=== PATIENT | male | born 1940 | race Caucasian/White ===

== ENCOUNTER 2022-01-22 02:25 | Inpatient (IN) | payer MEDICARE ==
[~2022-01-22] VITALS: Ht 165.1 cm; Wt 57.2 kg
--- NOTE | 2022-01-22 02:45 | NUR ---
DR. VILLELA AT BEDSIDE, MSE IN PROGRESS.
[2022-01-22] MEDS ORDERED: ACET325T53 PO (03:28)
[2022-01-22] MEDS ORDERED: ALLO300T2 PO (03:28)
[2022-01-22] MEDS ORDERED: BISA10SU61 RC (03:28)
[2022-01-22] MEDS ORDERED: ALBU2.5V38 IH (03:28)
[2022-01-22] MEDS ORDERED: DOCU100C36 PO (03:28)
[2022-01-22] MEDS ORDERED: QUET25TA PO (03:28)
[2022-01-22] MEDS ORDERED: CARB1TAB21 PO ×2 (03:28)
[2022-01-22] MEDS ORDERED: TRAM50TA2 PO (03:28)
[2022-01-22] MEDS ORDERED: NATE120T6 PO (03:28)
[2022-01-22] MEDS ORDERED: ATOR40TA PO (03:28)
[2022-01-22] MEDS ORDERED: SITA1TBM4 PO (03:28)
[2022-01-22] MEDS ORDERED: BUDE0.5A4 NEB (03:28)
[2022-01-22] MEDS ORDERED: INSU100V11 (03:28)
[2022-01-22] MEDS ORDERED: DONE5TAB34 PO (03:28)
--- NOTE | 2022-01-22 03:30 | NUR ---
GAVE REPORT TO KELSEY MERINO.
--- NOTE | 2022-01-22 04:11 | NUR ---
Pt. admitted to [facility] , under care of Dr. Wray Dx: psychosis, 5150 hold GD Belongs List completed
[2022-01-22] MEDS ORDERED: BLOOD SUGAR DIAGNOSTIC 1 EACH STRIP VI ONE (04:30)
[2022-01-22] MEDS ORDERED: ACETAMINOPHEN 650 MG SUPP.RECT RC PRN (04:30)
[2022-01-22] MEDS ORDERED: ACETAMINOPHEN 325 MG TABLET PO PRN (04:30)
[2022-01-22] MEDS ORDERED: MAG HYDROX/AL HYDROX/SIMETH 30 ML LIQUID UDC PO PRN (04:30)
--- NOTE | 2022-01-22 04:30 | NUR ---
Admitted 81 year old male from [place]. On a 5150 hold for gravely disabled. Upon face to face A&Ox1. Very limited in responses. Ambulates with assistance. Weak and unsteady gate. No aggressiveness noted. Sitting in slick chair by nurses station for observation. Advisement and patient's rights handbook given. PRN Ativan given for restlessness. Will continue to monitor behavior.
[2022-01-22] MEDS: LORAZEPAM 0.5 MG TABLET PO PRN ×2 (05:05→20:51)
[2022-01-22 07:50] VITALS: BP 126/72
[2022-01-22] MEDS ORDERED: QUETIAPINE FUMARATE 25 MG TABLET PO PRN (10:00)
[2022-01-22] MEDS ORDERED: CARBIDOPA/LEVODOPA 25-100MG TABLET PO SCH ×2 (13:00→21:00)
[2022-01-22] MEDS ORDERED: ALLO100T PO (14:23)
[2022-01-22] MEDS ORDERED: ALBU8HFA4 IH (14:34)
[2022-01-22] MEDS ORDERED: SITA1TAB6 PO (14:57)
[2022-01-22 16:56] VITALS: BP 143/66
[2022-01-22] MEDS ORDERED: QUETIAPINE FUMARATE 25 MG TABLET PO SCH (17:00)
[2022-01-22] MEDS: CARBIDOPA/LEVODOPA 25-100MG TABLET PO SCH ×2 (17:01→20:51)
[2022-01-22] MEDS: METFORMIN XR 500 MG TAB.SR.24H PO SCH (17:01)
[2022-01-22] MEDS ORDERED: BUDESONIDE 0.5 MG/2 ML NEBU NEB SCH (19:00)
--- NOTE | 2022-01-22 19:39 | NUR ---
GPS: PT RECEIVED ON CHAIR FOR SAFETY, PT WAS LESTER DOSE OFF DURING THE DAY. ASSISTED WITH FEEDING PT UNABLE TO DO IT BY HIMSELF. WITH EPISODE OF RESISTING WITH MEDICATION. PARANOID ABOUT THE MEDICATION HE'S TAKING AND IN ACT OF PUSHING THE JOB LITHOGRAPHER'S HAND REFUSING TO TAKE THE MEDS. EXPLAINED TO PT THE RISK AND BENEFITS, IN FRONT OF THE BROTHER VISITING THE PT. PER BROTHER, PT HAS BEEN LIKE THAT, LESTER RESISTIVE AND PARANOID ABOUT ANYTHING THAT IS GIVEN TO HIM. NO AGITATION NOTES. COMMUNICATED WITH DNP ABOUT PT LEFT PINK EYE WHICH IS KIND OF RED WITH NO CALL BACK,ENDORSED TO NIGHT NURSE. PT COVID TEST DONE, AFTER LAB PERSONNEL CALLED THAT PT NEEDS ONE. COVID TEST DONE, WILL WAIT FOR RESULT.
[2022-01-22 20:00] VITALS: BP 113/64
[2022-01-22] MEDS: ATORVASTATIN 40 MG TABLET PO SCH (20:51)
--- NOTE | 2022-01-22 21:45 | NUR ---
Received patient in the day room. He is noted A/O x 1. Patient is a poor historian. He noted in impaired insight and judgment as to the reason for his admission to [facility]. He appears depressed. affect is flat, mood is low. Pt required assistance with ADLs. Patient was noted with a redness and discharged on his left eye, Dustin Delarosa ROADSIDE MECHANIC was notified and new order obtained to administer Tobramycin 0.3% Q4 hrs TP on his left eye. Order noted and carried out. It was also noted redness on his buttock. Z guard was ordered and applied. Patient's V/S are stable. He was given PO fluids and snacks. He is reassured for his safety. safety and fall precautions are in place. will continue to monitor.
[2022-01-23] MEDS: TOBRAMYCIN 0.3% OPHT DROP 5 ML BOTTLE LEFTEYE SCH ×6 (04:00→21:07)
--- NOTE | 2022-01-23 05:05 | NUR ---
supervisor broadloom was notified at approx 0100 of the need for new order: Tobramycin 0.3% eye drops for patient's left eye; however, supervisor broadloom has not made available this medication to this magnetic tape typewriter operator. patient is Sleeping in his bed, no distress noted at this time. Will continue to monitor.
--- NOTE | 2022-01-23 07:27 | NUR ---
patient refused blood drawn. will try tomorrow. will continue to monitor.
[2022-01-23 07:50] VITALS: BP 168/58
[2022-01-23] MEDS: CARBIDOPA/LEVODOPA 25-100MG TABLET PO SCH ×6 (08:49→21:09)
[2022-01-23] MEDS ORDERED: ALLOPURINOL 300 MG TABLET PO SCH (09:00)
[2022-01-23] MEDS: REMEDY ESSENTIAL ZINC PASTE 113 GM TOP SCH ×2 (09:01→21:09)
[2022-01-23] MEDS: ALLOPURINOL 100 MG TABLET PO SCH (09:11)
[2022-01-23] MEDS: BUDESONIDE 0.5 MG/2 ML NEBU NEB SCH ×2 (09:33→19:30)
[2022-01-23] MEDS: busPIRone 5 MG TABLET PO SCH ×2 (09:44→17:39)
--- NOTE | 2022-01-23 11:47 | NUR ---
YAZ Initial Discharge Note: Patient currently resides at a [facility] located at [address] [place] [address]; ([phone]). YAZ will be in contact with pt's brother, Lavell ([phone]) to discuss treatment/discharge plan. YAZ will continue to work with MD and the pt. to facilitate a safe and proper discharge plan.
--- NOTE | 2022-01-23 14:48 | NUR ---
Received patient sleeping in his room. A/O X 1 to person. Pt. is withdrawn, quiet, confused, forgetful, cooperative with care, and complaint with medications. Ambulates with assistance. Incontinent of bladder and bowel. Pt. arms have bruises, skin is intact. Pt. is receiving breathing treatment for asthma. Pt. has redness on buttocks, cream barrier applied. Reality orientation provided. Fall and safety precautions implemented.
[2022-01-23 15:32] VITALS: BP 135/74
--- NOTE | 2022-01-23 17:00 | NUR ---
Patient is MRSA nares positive, Beronica was contacted, and ordered Standard Bactroban.
[2022-01-23] MEDS: METFORMIN XR 500 MG TAB.SR.24H PO SCH (17:40)
[2022-01-23] MEDS: MUPIROCIN 2% OINT 22 GM TUBE NS SCH (18:08)
[2022-01-23 19:30] VITALS: BP 156/71
--- NOTE | 2022-01-23 21:00 | NUR ---
received patient in his room in bed. He is noted Awake A/O x 1. Calm and pleasant upon approached, He is a poor historian. Is mood is low, affect is flat. V/S stable. Patient was given PO fluids and snacks. Safety and fall precautions are in place. He is reassured for his safety. Will continue to monitor.
[2022-01-23] MEDS: ATORVASTATIN 40 MG TABLET PO SCH (21:08)
[2022-01-23] MEDS: QUETIAPINE FUMARATE 25 MG TABLET PO SCH (21:24)
[2022-01-23] MEDS: LORAZEPAM 0.5 MG TABLET PO PRN (22:40)
--- NOTE | 2022-01-23 22:44 | NUR ---
Patient noted Restless. All his needs were met. patient requires assistance with ADLs. He is redirectable. Ativan 0.5mg PO PRN was given. Will continue to monitor.
[2022-01-24] MEDS: TOBRAMYCIN 0.3% OPHT DROP 5 ML BOTTLE LEFTEYE SCH ×7 (00:45→23:58)
[2022-01-24] MEDS: CARBIDOPA/LEVODOPA 25-100MG TABLET PO SCH ×5 (06:09→21:41)
[2022-01-24 07:34] VITALS: BP 110/67
[2022-01-24] MEDS: BUDESONIDE 0.5 MG/2 ML NEBU NEB SCH ×2 (08:24→20:23)
[2022-01-24] MEDS: MUPIROCIN 2% OINT 22 GM TUBE NS SCH ×2 (08:48→20:24)
[2022-01-24] MEDS: busPIRone 5 MG TABLET PO SCH ×2 (08:48→17:22)
[2022-01-24] MEDS: ALLOPURINOL 100 MG TABLET PO SCH (08:48)
[2022-01-24] MEDS: REMEDY ESSENTIAL ZINC PASTE 113 GM TOP SCH ×2 (08:49→20:25)
[2022-01-24 16:42] VITALS: BP 149/81
[2022-01-24] MEDS: METFORMIN XR 500 MG TAB.SR.24H PO SCH (17:22)
[2022-01-24 19:41] VITALS: BP 136/76
[2022-01-24] MEDS: ATORVASTATIN 40 MG TABLET PO SCH (20:25)
[2022-01-24] MEDS: QUETIAPINE FUMARATE 25 MG TABLET PO SCH (20:25)
[2022-01-24] MEDS: LORAZEPAM 0.5 MG TABLET PO PRN (21:41)
[2022-01-25] MEDS: TEMAZEPAM 7.5 MG CAPSULE PO PRN (00:47)
[2022-01-25] MEDS ORDERED: CARBIDOPA/LEVODOPA 25-100MG TABLET ONE (04:14)
[2022-01-25] MEDS: TOBRAMYCIN 0.3% OPHT DROP 5 ML BOTTLE LEFTEYE SCH ×5 (04:17→20:20)
[2022-01-25] MEDS: CARBIDOPA/LEVODOPA 25-100MG TABLET PO SCH ×5 (05:20→21:31)
--- NOTE | 2022-01-25 06:22 | NUR ---
GPS: Pt.slept 4.45 last night. Up on slick chair at this time near nurses station for safety and close observation. Denies SOB/pain when asked. Atb eye drops continues to resolve conjunctivitis. Afebrile without any increased agitation noted. Fluids alfredo.well.Bactroban therapy continues for MRSA nares.
[2022-01-25 08:03] VITALS: BP 154/85
[2022-01-25] MEDS: busPIRone 5 MG TABLET PO SCH ×2 (08:20→17:42)
[2022-01-25] MEDS: ALLOPURINOL 100 MG TABLET PO SCH (08:20)
[2022-01-25] MEDS: MUPIROCIN 2% OINT 22 GM TUBE NS SCH ×2 (08:22→20:20)
[2022-01-25] MEDS: REMEDY ESSENTIAL ZINC PASTE 113 GM TOP SCH ×2 (08:23→20:42)
[2022-01-25] MEDS: BUDESONIDE 0.5 MG/2 ML NEBU NEB SCH ×2 (08:52→20:14)
--- NOTE | 2022-01-25 11:33 | NUR ---
GPS: Nursing Notes: Thought Disorder: Patient is awake and responding to his name, disoriented, confused, impaired judgment, needs prompting to be compliant with the unit milieu, showered and shaved, poor insight, unable to formulate a viable plan for self care, redirected and reoriented during shift, minimal participation in therapeutic groups, continue to monitor for safety, continue with treatment plan.
[2022-01-25 16:27] VITALS: BP 143/84
[2022-01-25] MEDS: METFORMIN XR 500 MG TAB.SR.24H PO SCH (17:42)
[2022-01-25 20:02] VITALS: BP 136/79
[2022-01-25] MEDS: ATORVASTATIN 40 MG TABLET PO SCH (20:20)
[2022-01-25] MEDS: QUETIAPINE FUMARATE 25 MG TABLET PO SCH (20:20)
[2022-01-26] MEDS: TOBRAMYCIN 0.3% OPHT DROP 5 ML BOTTLE LEFTEYE SCH ×6 (00:34→19:49)
--- NOTE | 2022-01-26 05:50 | NUR ---
GPS: Patient Remain disoriented, confused and impaired judgment, poor insight, unable to formulate a viable plan for self care, redirected and reoriented during shift,slept 5.45 hrs through the night. continue to monitor for safety.
[2022-01-26] MEDS: CARBIDOPA/LEVODOPA 25-100MG TABLET PO SCH ×5 (07:07→21:28)
[2022-01-26 07:41] VITALS: BP 152/80
[2022-01-26] MEDS: REMEDY ESSENTIAL ZINC PASTE 113 GM TOP SCH ×2 (08:00→20:12)
[2022-01-26] MEDS: LORAZEPAM 0.5 MG TABLET PO PRN (08:00)
[2022-01-26] MEDS: ALLOPURINOL 100 MG TABLET PO SCH (08:00)
[2022-01-26] MEDS: MUPIROCIN 2% OINT 22 GM TUBE NS SCH ×2 (08:00→20:11)
--- NOTE | 2022-01-26 08:00 | NUR ---
Confused, agitated, yelling. Ativan po given with pudding. Calm and compliant after.
[2022-01-26] MEDS: busPIRone 5 MG TABLET PO SCH ×3 (08:07→17:08)
[2022-01-26] MEDS: BUDESONIDE 0.5 MG/2 ML NEBU NEB SCH ×2 (08:58→20:58)
--- NOTE | 2022-01-26 09:39 | NUR ---
Assisted out of bed by PT ambulated with FWW then sitting on gerichair in the hallway
--- NOTE | 2022-01-26 14:00 | NUR ---
Alert, oriented x 2, follows command, calm, sitting on the gerichair. Assisted with meal,eating fairly. Compliant with taking medication, crushed with pudding.
[2022-01-26 16:06] VITALS: BP 117/69
[2022-01-26] MEDS: METFORMIN XR 500 MG TAB.SR.24H PO SCH (17:08)
--- NOTE | 2022-01-26 17:35 | NUR ---
Calm and complaint with taking meal and medication.
[2022-01-26 20:06] VITALS: BP 136/76
[2022-01-26] MEDS: QUETIAPINE FUMARATE 25 MG TABLET PO SCH (20:11)
[2022-01-26] MEDS: ATORVASTATIN 40 MG TABLET PO SCH (20:12)
[2022-01-27] MEDS: TOBRAMYCIN 0.3% OPHT DROP 5 ML BOTTLE LEFTEYE SCH ×7 (03:23→23:08)
[2022-01-27] MEDS: CARBIDOPA/LEVODOPA 25-100MG TABLET PO SCH ×5 (05:11→21:05)
--- NOTE | 2022-01-27 06:17 | NUR ---
GPS: Patient Remain confused and impaired judgment, poor insight, unable to formulate a viable plan for self care, redirected and reoriented during shift,slept 6 hrs through the night. continue to monitor for safety.
[2022-01-27 07:30] VITALS: BP 142/88
[2022-01-27] MEDS: ALLOPURINOL 100 MG TABLET PO SCH (08:44)
[2022-01-27] MEDS: busPIRone 5 MG TABLET PO SCH ×3 (08:44→17:47)
[2022-01-27] MEDS: MUPIROCIN 2% OINT 22 GM TUBE NS SCH ×2 (08:45→20:23)
[2022-01-27] MEDS: REMEDY ESSENTIAL ZINC PASTE 113 GM TOP SCH ×2 (08:46→20:23)
[2022-01-27] MEDS: BUDESONIDE 0.5 MG/2 ML NEBU NEB SCH ×2 (09:38→18:59)
[2022-01-27 15:27] VITALS: BP 163/84
[2022-01-27] MEDS: METFORMIN XR 500 MG TAB.SR.24H PO SCH (17:53)
--- NOTE | 2022-01-27 18:38 | NUR ---
GPS: PT RECEIVED TODAY ON BED, PLACED TO CHAIR FOR SAFETY AND MEALS. PT SEEN EATING BY HIMSELF DURING THE BREAKFAST. COMPLIANT WITH CARE AND MEDS. PT HAD BOWEL MOVEMENT AND ASSISTED TO THE SHOWER TODAY. NO AGITATION NOTED. PT WAS VISITED BY HIS BROTHER. SEEN BY THE PSYCHIATRIST TODAY AND WAS NOT VERY ATTENTIVE AND NOT IN FOCUS. DID NOT EVEN SPEAK WITH PSYCHIATRIST.
[2022-01-27 20:07] VITALS: BP 185/87
[2022-01-27] MEDS: QUETIAPINE FUMARATE 25 MG TABLET PO SCH (20:26)
[2022-01-27] MEDS: ATORVASTATIN 40 MG TABLET PO SCH (20:26)
[2022-01-27 20:30] VITALS: BP 158/72
[2022-01-27] MEDS: TEMAZEPAM 7.5 MG CAPSULE PO PRN (22:03)
[2022-01-28] MEDS: TOBRAMYCIN 0.3% OPHT DROP 5 ML BOTTLE LEFTEYE SCH ×6 (04:22→23:57)
[2022-01-28] MEDS: CARBIDOPA/LEVODOPA 25-100MG TABLET PO SCH ×5 (06:02→21:07)
--- NOTE | 2022-01-28 06:23 | NUR ---
GPS: Pt.slept 6.30 last night. No aggressive behavior noted. Fall precautions observed. Needs attended. Will continue to monitor.
[2022-01-28 07:30] VITALS: BP 166/77
[2022-01-28] MEDS: busPIRone 5 MG TABLET PO SCH ×3 (08:45→17:28)
[2022-01-28] MEDS: ALLOPURINOL 100 MG TABLET PO SCH (08:46)
[2022-01-28] MEDS: MUPIROCIN 2% OINT 22 GM TUBE NS SCH ×2 (08:46→20:16)
[2022-01-28] MEDS: REMEDY ESSENTIAL ZINC PASTE 113 GM TOP SCH ×2 (08:46→20:13)
[2022-01-28] MEDS: BUDESONIDE 0.5 MG/2 ML NEBU NEB SCH ×2 (08:51→19:38)
--- NOTE | 2022-01-28 09:43 | NUR ---
GPS: PT ON CHAIR FOR SAFETY. COOPERATIVE WITH CARE AND COMPLIANT WITH MEDS. PT PARTICIPATED WITH GROUP THERAPY AT OUTSIDE PATIO WITH RECREATIONAL THERAPIST. PT DENIES PAIN OR DISCOMFORT. ABLE TO UNDERSTAND SOMETIMES. NO AGITATION NOTED AT THIS TIME.
--- NOTE | 2022-01-28 11:01 | NUR ---
GPS: PROBABLE CAUSE HEARING DONE TODAY AND PT REFUSED TO PARTICIPATE. HOLD WILL REMAIN FOR GRAVE DISABILITY ONLY. PT MADE AWARE.
[2022-01-28 16:00] VITALS: BP 138/87
[2022-01-28] MEDS: METFORMIN XR 500 MG TAB.SR.24H PO SCH (17:33)
--- NOTE | 2022-01-28 17:53 | NUR ---
GPS: PT STARTING TO EAT INDEPENDENTLY WITH SUPERVISION. NO DYSPHAGIA NOTED. PT DENIES PAIN OR DISCOMFORT. PT ABLE TO FOLLOWS SIMPLE DIRECTION LIKE STAND UP OR SIT DOWN. ALSO MORE ALERT AND ABLE TO SPEAK CLEARLY SOMETIMES. CONSTANT ADMINISTERING OF OPHTHALMIC DROPS ON LEFT EYE MAKES A GOOD PROGRESS, LESSER REDNESS COMPARE TO PREVIOUS ADMIT DATE. WILL CONTINUE TO ENCOURAGE PT TO HAVE INCREASE FOOD AND FLUID INTAKE, CONTINUE ATTENDING GROUP THERAPY AND ACTIVITIES.
[2022-01-28 19:54] VITALS: BP 117/67
[2022-01-28] MEDS: ATORVASTATIN 40 MG TABLET PO SCH (20:16)
[2022-01-28] MEDS: QUETIAPINE FUMARATE 25 MG TABLET PO SCH (20:16)
[2022-01-28] MEDS ORDERED: DEXTROSE 50% 50 ML DISP.SYRIN IV PRN (21:30)
[2022-01-28] MEDS: TEMAZEPAM 7.5 MG CAPSULE PO PRN (21:40)
[2022-01-29] MEDS: TOBRAMYCIN 0.3% OPHT DROP 5 ML BOTTLE LEFTEYE SCH ×6 (04:05→23:44)
[2022-01-29] MEDS: CARBIDOPA/LEVODOPA 25-100MG TABLET PO SCH ×5 (05:23→21:20)
[2022-01-29] MEDS: BLOOD SUGAR DIAGNOSTIC 1 EACH STRIP VI SCH ×4 (06:17→20:45)
[2022-01-29 07:28] LABS: HEMATOCRIT 37.4 % (36.7-47.1); MEAN CORPUSCULAR VOLUME 89.5 fL (73.0-96.2); PLATELET COUNT (AUTO) 227 K/uL (152-348)
[2022-01-29 07:30] VITALS: BP 128/62
[2022-01-29 08:02] LABS: BILIRUBIN,TOTAL 0.8 mg/dL (0.2-1.0); MAGNESIUM 1.4 mg/dL (1.8-2.4); PHOSPHOROUS 2.9 mg/dL (2.5-4.9); POTASSIUM 3.7 mmol/L (3.5-5.1); TOTAL PROTEIN, SERUM 6.9 g/dL (6.4-8.2)
[2022-01-29] MEDS: BUDESONIDE 0.5 MG/2 ML NEBU NEB SCH ×2 (08:15→19:10)
[2022-01-29 08:16] LABS: THYROID STIMULATING HORMONE 1.449 mIU/mL (0.358-3.740)
[2022-01-29] MEDS: METFORMIN XR 500 MG TAB.SR.24H PO SCH (09:06)
[2022-01-29] MEDS: ALLOPURINOL 100 MG TABLET PO SCH (09:06)
[2022-01-29] MEDS: INSULIN REGULAR, HUMAN 300 UNIT/3 ML VIAL SQ PRN ×3 (09:10→20:49)
[2022-01-29] MEDS: MUPIROCIN 2% OINT 22 GM TUBE NS SCH ×2 (09:12→20:45)
[2022-01-29] MEDS: REMEDY ESSENTIAL ZINC PASTE 113 GM TOP SCH ×2 (09:13→20:45)
[2022-01-29] MEDS: busPIRone 5 MG TABLET PO SCH ×3 (09:13→17:57)
--- NOTE | 2022-01-29 11:31 | NUR ---
GPS: PT SEEN TODAY AT CHAIR FOR SAFETY AND PT HAD A GOOD MEAL TODAY. NO AGITATION NOTED. PT PARTICIPATED WITH GROUP THERAPY. SOMETIMES, PT RESPOND TO QUESTION, BUT MOST OF THE TIME VERY QUIET. POOR JUDGEMENT. UNABLE TO MAKE NEEDS KNOWN. NO AGITATION NOTED AT THIS TIME.
[2022-01-29] MEDS ORDERED: MAGNESIUM OXIDE 400 MG TABLET PO ONE (13:00)
[2022-01-29 16:00] VITALS: BP 108/54
[2022-01-29] MEDS: QUETIAPINE FUMARATE 25 MG TABLET PO SCH (20:44)
[2022-01-29 20:45] VITALS: BP 131/86
[2022-01-29] MEDS: LORAZEPAM 0.5 MG TABLET PO PRN (20:45)
[2022-01-29] MEDS: TEMAZEPAM 7.5 MG CAPSULE PO PRN (23:45)
[2022-01-30] MEDS: TOBRAMYCIN 0.3% OPHT DROP 5 ML BOTTLE LEFTEYE SCH ×6 (04:11→23:05)
--- NOTE | 2022-01-30 04:49 | NUR ---
GPS NOTES: Received patient in bed, A&0x1, responsive to external stimuli. L eye redness still noted. Patient attempt to get out of bed, transferred to chair for safety. BS 202 with 4 units insulin given. Ativan given for anxiety. Restoril given for insomnia. Patient sleeping well. safety strategies in place. closely monitoring observed.
[2022-01-30] MEDS: CARBIDOPA/LEVODOPA 25-100MG TABLET PO SCH ×5 (05:24→21:24)
[2022-01-30] MEDS: BLOOD SUGAR DIAGNOSTIC 1 EACH STRIP VI SCH ×4 (06:32→20:10)
[2022-01-30 07:30] VITALS: BP_SYST 122; BP_SYST 155; BP_DIAS 49; BP_DIAS 64
[2022-01-30] MEDS: ALLOPURINOL 100 MG TABLET PO SCH (08:45)
[2022-01-30] MEDS: busPIRone 5 MG TABLET PO SCH ×3 (08:45→17:03)
[2022-01-30] MEDS: REMEDY ESSENTIAL ZINC PASTE 113 GM TOP SCH ×2 (08:52→20:04)
[2022-01-30] MEDS: MUPIROCIN 2% OINT 22 GM TUBE NS SCH (08:52)
[2022-01-30] MEDS: glipiZIDE 5 MG TABLET PO SCH ×2 (08:55→17:03)
[2022-01-30] MEDS: BUDESONIDE 0.5 MG/2 ML NEBU NEB SCH ×2 (09:34→22:06)
[2022-01-30] MEDS: INSULIN REGULAR, HUMAN 300 UNIT/3 ML VIAL SQ PRN ×3 (12:00→20:13)
--- NOTE | 2022-01-30 12:30 | NUR ---
Patient blood glucose is 303, 8 units of regular insulin was given per sliding scale.
--- NOTE | 2022-01-30 15:11 | NUR ---
Received patient sleeping in his room. A/O X 1 to person. Pt. is cooperative with care and compliant with medications. Pt. requires total assistance. Pt. is confused and unaware of his surrondings. Reassurance given. Fall and safety precautions implemented.
[2022-01-30 16:35] VITALS: BP 135/75
[2022-01-30] MEDS: METFORMIN XR 500 MG TAB.SR.24H PO SCH (18:29)
[2022-01-30] MEDS: QUETIAPINE FUMARATE 25 MG TABLET PO SCH (20:04)
[2022-01-30 20:12] VITALS: BP 150/73
[2022-01-30] MEDS: TEMAZEPAM 7.5 MG CAPSULE PO PRN (22:59)
[2022-01-31] MEDS: TOBRAMYCIN 0.3% OPHT DROP 5 ML BOTTLE LEFTEYE SCH ×2 (04:00→08:20)
[2022-01-31] MEDS: CARBIDOPA/LEVODOPA 25-100MG TABLET PO SCH ×5 (05:46→21:02)
[2022-01-31] MEDS: BLOOD SUGAR DIAGNOSTIC 1 EACH STRIP VI SCH ×4 (05:57→20:42)
--- NOTE | 2022-01-31 06:14 | NUR ---
GPS: Up on slick-chair as alfredo.in front of nurses station for safety. Pt.slept 5.30 last night. No increased agitation noted. Re-directed and re-assured prn. Fluids encouraged and alfredo.well. Will continue to monitor.
[2022-01-31 07:32] VITALS: BP 108/62
[2022-01-31] MEDS: BUDESONIDE 0.5 MG/2 ML NEBU NEB SCH ×2 (07:58→21:51)
[2022-01-31] MEDS: busPIRone 5 MG TABLET PO SCH ×3 (08:19→17:23)
[2022-01-31] MEDS: ALLOPURINOL 100 MG TABLET PO SCH (08:19)
[2022-01-31] MEDS: REMEDY ESSENTIAL ZINC PASTE 113 GM TOP SCH ×2 (08:19→20:42)
[2022-01-31] MEDS: glipiZIDE 5 MG TABLET PO SCH ×2 (08:19→16:47)
[2022-01-31] MEDS: INSULIN REGULAR, HUMAN 300 UNIT/3 ML VIAL SQ PRN ×4 (09:21→20:50)
--- NOTE | 2022-01-31 15:13 | NUR ---
Received patient awake in the hallway. A/O X 1 to person. Pt. is confused "Am I suppose to be here the whole day?" forgetful, cooperative with nursing care, compliant with medications. Reality orientation provided. Fall and safety precautions implemented.
[2022-01-31 16:09] VITALS: BP 141/76
--- NOTE | 2022-01-31 16:50 | NUR ---
Pt. states "I'm having a pressure on the back of my head, and he pointed out where". Pt. was asked if he has a headache and he said yes. Tylenol 650 mg was given at 16:48, will be monitored for effectiveness.
[2022-01-31] MEDS: METFORMIN XR 500 MG TAB.SR.24H PO SCH (17:23)
[2022-01-31 19:56] VITALS: BP 142/67
[2022-01-31] MEDS: QUETIAPINE FUMARATE 25 MG TABLET PO SCH (20:10)
[2022-01-31] MEDS: MAGNESIUM HYDROXIDE 30 ML LIQUID UDC PO PRN (20:11)
[2022-01-31] MEDS: MAGNESIUM OXIDE 400 MG TABLET PO SCH (20:42)
[2022-02-01] MEDS: CARBIDOPA/LEVODOPA 25-100MG TABLET PO SCH ×5 (06:11→21:53)
[2022-02-01] MEDS: glipiZIDE 5 MG TABLET PO SCH ×2 (06:43→16:50)
[2022-02-01] MEDS: BLOOD SUGAR DIAGNOSTIC 1 EACH STRIP VI SCH ×4 (06:44→20:24)
[2022-02-01] MEDS: BUDESONIDE 0.5 MG/2 ML NEBU NEB SCH ×2 (07:04→21:47)
[2022-02-01 07:30] VITALS: BP 129/73
[2022-02-01] MEDS: ALLOPURINOL 100 MG TABLET PO SCH (09:05)
[2022-02-01] MEDS: busPIRone 5 MG TABLET PO SCH ×3 (09:06→17:59)
[2022-02-01] MEDS: REMEDY ESSENTIAL ZINC PASTE 113 GM TOP SCH ×2 (10:11→20:24)
--- NOTE | 2022-02-01 10:20 | NUR ---
Patient is having buttocks skin breakdown, wound consult was ordered, and pictures were taken, Zinc paste applied, will be monitored.
[2022-02-01] MEDS ORDERED: MIRALAX 17 GM POWD.PACK PO PRN (12:45)
[2022-02-01] MEDS: INSULIN REGULAR, HUMAN 300 UNIT/3 ML VIAL SQ PRN ×3 (13:21→20:30)
--- NOTE | 2022-02-01 13:33 | NUR ---
Blood glucose 230, 4 units of regular insulin given per sliding scale.
--- NOTE | 2022-02-01 15:15 | NUR ---
Received patient awake in the hallway. A/O X 1 to person. Pt. is pleasantly confused "Are you going to [place] now? I need a ride". "Did I eat today?" Pt. is cooperative with vital signs, Accuchecks, Insulin. Pt. is compliant with medications. Requires total assistance with ADL. Reassurance given. Fall and safety precautions implemented.
[2022-02-01 16:00] VITALS: BP 155/84
[2022-02-01] MEDS: METFORMIN XR 500 MG TAB.SR.24H PO SCH (17:59)
--- NOTE | 2022-02-01 18:40 | NUR ---
Blood glucose 191, 3 units of regular insulin given per sliding scale.
[2022-02-01 19:52] VITALS: BP 154/82
[2022-02-01] MEDS: QUETIAPINE FUMARATE 25 MG TABLET PO SCH (20:23)
[2022-02-01] MEDS: MAGNESIUM OXIDE 400 MG TABLET PO SCH (20:23)
--- NOTE | 2022-02-01 21:00 | NUR ---
Received patient in the hallway sitting in a jose chair near the nursing station. he is noted awake A/O x 1. patient is a poor historian and he is unable to have a meaningful conversation with this residential mortgage underwriter. He is noted calm and cooperative. BS was 255, given 6 unit insulin regular. V/S are stable. He was given PO fluids and snacks. Patient is reassured for his safety. Safety and fall precautions are in place. will continue to monitor.
[2022-02-02] MEDS: CARBIDOPA/LEVODOPA 25-100MG TABLET PO SCH ×5 (06:22→22:09)
[2022-02-02] MEDS: MAGNESIUM HYDROXIDE 30 ML LIQUID UDC PO PRN (06:45)
[2022-02-02] MEDS: glipiZIDE 5 MG TABLET PO SCH ×2 (06:45→17:21)
[2022-02-02] MEDS: BLOOD SUGAR DIAGNOSTIC 1 EACH STRIP VI SCH ×4 (06:51→20:46)
--- NOTE | 2022-02-02 06:57 | NUR ---
Patient slept for approx 8.30 hrs through the night. he is compliant with medication regiment diet and plan of carte. will continue to monitor.
[2022-02-02 07:38] VITALS: BP 118/70
[2022-02-02] MEDS: BUDESONIDE 0.5 MG/2 ML NEBU NEB SCH ×2 (08:17→20:29)
[2022-02-02] MEDS: busPIRone 5 MG TABLET PO SCH ×3 (09:05→17:21)
[2022-02-02] MEDS: ALLOPURINOL 100 MG TABLET PO SCH (09:06)
[2022-02-02] MEDS: REMEDY ESSENTIAL ZINC PASTE 113 GM TOP SCH ×2 (09:07→20:45)
--- NOTE | 2022-02-02 11:40 | NUR ---
Firearms Report: Multiple Drum Sander completed and submitted a [employer] firearms report for 5150 grave disability certifications. A copy of report has been placed in patient chart.
--- NOTE | 2022-02-02 11:52 | NUR ---
YAZ Family Contact: YAZ contacted pt's brother, Lavell ([phone]) and discussed the pt's current status and discharge update. YAZ stated to Lavell that pt will be discharging to [facility] [address] [place] [address] via Ambulance transportation at 1PM. Lavell is aware and agreeable.
[2022-02-02] MEDS: INSULIN REGULAR, HUMAN 300 UNIT/3 ML VIAL SQ PRN ×3 (12:53→20:36)
[2022-02-02] MEDS ORDERED: MAGNESIUM CITRATE 296 ML BOTTLE PO ONE (13:30)
--- NOTE | 2022-02-02 14:42 | NUR ---
received patient is confused and disoriented ,total care to all ADLS, placed patient up to slick-chair Med.compliant.waiting for wound consult No aggressive behavior noted. Fall precautions observed. Will continue to re-orient prn.
[2022-02-02 16:11] VITALS: BP 110/62
[2022-02-02] MEDS: METFORMIN XR 500 MG TAB.SR.24H PO SCH (17:23)
[2022-02-02 19:56] VITALS: BP 152/70
[2022-02-02] MEDS: QUETIAPINE FUMARATE 25 MG TABLET PO SCH (20:32)
[2022-02-02] MEDS: MAGNESIUM OXIDE 400 MG TABLET PO SCH (20:32)
--- NOTE | 2022-02-02 21:51 | NUR ---
Patient received in the hallway sitting in a slick chair near the nursing station awake. Patient A/O x 1. Patient is complaint with medication. patient is a poor historian and he is unable to have a meaningful conversation. He is noted calm and cooperative. BS was 268 mg/dl, given 6 unit of insulin per order and per scale. PO fluids and snacks. Patient is reassured for his safety. Safety and fall precautions are in place. Bed in lowest position, bed locked, and bed alarm on while in bed.
[2022-02-02] MEDS: TEMAZEPAM 7.5 MG CAPSULE PO PRN (22:47)
[2022-02-03] MEDS: CARBIDOPA/LEVODOPA 25-100MG TABLET PO SCH ×3 (06:23→13:36)
[2022-02-03] MEDS: BLOOD SUGAR DIAGNOSTIC 1 EACH STRIP VI SCH ×2 (06:35→11:30)
[2022-02-03 07:30] VITALS: BP 145/82
[2022-02-03] MEDS: busPIRone 5 MG TABLET PO SCH ×2 (08:24→12:35)
[2022-02-03] MEDS: glipiZIDE 5 MG TABLET PO SCH (08:24)
[2022-02-03] MEDS: ALLOPURINOL 100 MG TABLET PO SCH (08:24)
[2022-02-03] MEDS: REMEDY ESSENTIAL ZINC PASTE 113 GM TOP SCH (08:25)
[2022-02-03] MEDS: BUDESONIDE 0.5 MG/2 ML NEBU NEB SCH (09:33)
--- NOTE | 2022-02-03 10:11 | NUR ---
WOUND CARE CONSULT: PT PRESENTS WITH RASH AND SKIN TO INNER BUTTOCKS, NOT ON A BONY AREA. RECOMMENDATIONS MADE FOR SKIN PROTECTION AND CARE. DISCUSSED WITH NURSING STAFF. MD IN AGREEMENT WITH PLAN OF CARE.
[2022-02-03] MEDS ORDERED: CLOTRIMAZOLE 1% CREAM 30 GM TUBE TOP SCH (10:15)
--- NOTE | 2022-02-03 11:41 | NUR ---
YAZ Discharge Note: Pt will be discharged to [facility] [address] [place] [address] via Ambulance transportation at 1PM. YAZ spoke with admin coordinator, Nathaly ([phone]) at the facility who states they are ready to accept the patient today. Pt is aware and agreeable with discharge plans. Pt is alert and oriented x1(name), is unable to plan for self-care at this time; however, is willing to accept care at SNF. Pts brother, Lavell ([phone]) is aware and agreeable with the discharge plans. Pt denies any suicidal or homicidal ideation. Pt will follow-up at the facility with Psychiatrist, Dr. Phan and Descriptive Catalog Librarian, Dr. Diaz. Pt presents with calm mood and congruent affect. PHARMACY: [facility] ([phone]) [address] [place] [address].
--- NOTE | 2022-02-03 14:55 | NUR ---
Discharged patient to [facility] via Ambulance transportation at 2 ;30 pm . Pt is aware and agreeable with discharge plans. Pt is alert and oriented x1(name), is unable to plan for self-care at this time. report called and spoke with Pema BETH , patient had open wound on inner buttocks refused for picture taken,wound care done as ordered.all personal belonging returned to patient vital sign stable.
== END 2022-02-03 15:00 | DRG 885 ==
LOC: ER 02:31 → GPS 03:47
PROVIDERS: ADMIT Psychiatry & Neurology Psychosomatic Medicine; ATTEND Nurse Practitioner Acute Care
DX: F29 Unspecified psychosis not due to a substance or known physiological condition (principal); F01.51 Vascular dementia, unspecified severity, with behavioral disturbance; E11.65 Type 2 diabetes mellitus with hyperglycemia; D68.59 Other primary thrombophilia; F03.91 Unspecified dementia, unspecified severity, with behavioral disturbance; F02.81 Dementia in other diseases classified elsewhere, unspecified severity, with behavioral disturbance; G20 Parkinson's disease; F02.80 Dementia in other diseases classified elsewhere, unspecified severity, without behavioral disturbance, psychotic disturbance, mood disturbance, and anxiety; E78.5 Hyperlipidemia, unspecified; E83.42 Hypomagnesemia; F41.9 Anxiety disorder, unspecified; J44.9 Chronic obstructive pulmonary disease, unspecified; K59.00 Constipation, unspecified; M10.9 Gout, unspecified; Z87.891 Personal history of nicotine dependence; F25.9 Schizoaffective disorder, unspecified; Z74.09 Other reduced mobility; H10.9 Unspecified conjunctivitis; J98.4 Other disorders of lung; Z79.84 Long term (current) use of oral hypoglycemic drugs; Z20.822 Contact with and (suspected) exposure to COVID-19
CPT/HCPCS: 36415; 83735; 84100; 84443; 85025; 94640; 97161; A4663; J1815; J8499